=== PATIENT | male | born 1950 | race Caucasian/White ===

== ENCOUNTER 2023-04-13 14:36 | Outpatient (REF) | payer BC, SELFPAY ==
[2023-04-13 14:51] LABS: SARS-CoV-2 Ag POSITIVE (NEGATIVE)
== END 2023-04-13 14:37 | disposition home or self-care (01) ==
LOC: LAB 14:36
PROVIDERS: PCP Family Medicine; Visit Provider Family Medicine
DX: R05.1 Acute cough (principal)
CPT/HCPCS: 87811

== ENCOUNTER 2024-09-05 15:53 | Outpatient (OUT) | payer BC, SELFPAY ==
--- NOTE | 2024-09-05 | XR_ITS ---
The [address] [address] Patient Name: TENZIN VILLANUEVA MRN: [id number] date: 1950 Sex: M Assigned Patient Location: [facility] Current Patient Location: [facility] Accession/Order Number: [id number] Exam Date: 09/05/2024 17:41 Report Date: 09/05/2024 17:42 At the request of: LYN MARTINEZ MD Procedure: XR chest 2V Plain film chest 2 view HISTORY: Acute cough for 3 weeks COMPARISON: None FINDINGS: SUPPORT DEVICES: None POSTSURGICAL CHANGES: None HEART: Within normal limits PULMONARY KENDALL: Within normal limits MEDIASTINUM: Unremarkable LUNGS AND PLEURA: No acute lung process, pleural effusion or pneumothorax identified. BONY STRUCTURES: Thoracic hyperostosis/spondylosis ADDITIONAL FINDINGS None XR/XR chest 2V IMPRESSION: No acute process. Impression dictated by: Rik Barrientos M.D.09/05/2024 5:42 PM Dictation Location: InboundWriter Electronically authenticated by: [id number] Y Date: 09/05/2024 17:42
--- OUTSIDE RECORDS SUMMARY | 2024-09-05 16:18 | XMS_ITS | CCD ---
Author Organization [facility] Care Team Providers Care Yarn Spooler Name Role Phone ItaliaNata Unavailable Lyn Rodriguez Primary Care Physician MICHAEL ., DR NICHOLSON Admitting Unavailable HOY ., DR NICHOLSON Attending Unavailable HOY ., DR NICHOLSON Primary Care Unavailable HOY ., DR NICHOLSON Consulting Unavailable NILL, JANET Admitting Unavailable NILL, JANET Attending Unavailable HOY ., DR NICHOLSON Primary Care Unavailable NILL, JANET Consulting Unavailable NILL, JANET Admitting Unavailable NILL, JANET Attending Unavailable HOY ., DR NICHOLSON Primary Care Unavailable NILL, JANET Consulting Unavailable SHARP, PARISH Consulting Unavailable CHRISSY II, FARTUN Consulting Unavailable HOY ., DR NICHOLSON Admitting Unavailable HOY ., DR NICHOLSON Attending Unavailable HOY ., DR NICHOLSON Primary Care Unavailable HOY ., DR NICHOLSON Consulting Unavailable ZIEBER, DR EVIE Berger Consulting Unavailable HOY ., DR NICHOLSON Admitting Unavailable HOY ., DR NICHOLSON Attending Unavailable HOY ., DR NICHOLSON Primary Care Unavailable HOY ., DR NICHOLSON Consulting Unavailable NILL, Janet R Attending Unavailable NILL, Janet Berger Attending Unavailable NILL, Janet Berger Attending Unavailable HoyLyn Referring Unavailable NILL, Janet R Attending Unavailable NILL, Janet R Attending Unavailable NILL, Janet R Attending Unavailable Kenney, Puja Unavailable Allergies Allergy Classification Reported Allergen(s) Allergy Type Date of Onset Reaction(s) Facility (1 source) No Known Medication Allergies; Translations: [No Known Medication Allergies] Propensity to adverse reactions (disorder) [facility] Repository Medications Current Medications Medication Drug Class(es) Dates Sig (Normalized) Sig (Original) amoxicillin 875 mg / clavulanate 125 mg oral tablet (1 source) Penicillin-class Antibacterial Start: 12-06-2022 take 1 tablet by mouth every twelve hours Amoxicillin-Pot Clavulanate 875-125 MG 1 tablet Orally every 12 hrs for 10 day(s) Dec, Active dextromethorphan hydrobromide 30 mg / pyrilamine maleate 30 mg oral tablet (1 source) Uncompetitive N-fqblsm-Z-aspartate Receptor Antagonist, Sigma-1 Agonist Start: 12-06-2022 [place] DMT 30-30 MG 1 tablet Orally every 6-8 hours for 7 days Dec, Active fluticasone propionate 0.05 mg/actuat metered dose nasal spray (1 source) Corticosteroid Start: 12-06-2022 take 1 spray(s) nasal route once daily Fluticasone Propionate 50 MCG/ACT 1 spray in each nostril Nasally Once a day for 14 day(s) Dec, Active lisinopril 10 mg oral tablet (5 sources) Angiotensin Converting Enzyme Inhibitor Start: 09-25-2022 take 1 tablet by mouth once daily traZODone hydrochloride 100 mg oral tablet (5 sources) Serotonin Reuptake Inhibitor Start: 07-01-2018 take 100 mg by mouth once daily at bedtime trazodone 100 mg, Oral, Once a day (at bedtime), Refills(s) 0, Sleep Start Date: 07/01/18 Status: Ordered Problems Active Problems Problem Classification Problem Date Documented Da te Episodic/Chronic Abdominal hernia (15 sources) Obstructed inguinal hernia; Translations: [Unilateral inguinal hernia, with obstruction, without gangrene, not specified as recurrent] Onset: 09-11-2022 Episodic Biliary tract disease (1 source) Calculus of gallbladder without cholecystitis without obstruction; Translations: [CALCU GB W/O CHOLECYST W/O OBST] Onset: 09-20-2022 Episodic Diabetes mellitus without complication (4 sources) Diabetes mellitus; Translations: [Type 2 diabetes mellitus without complications] Onset: 10-06-2022 09-29-2022 Chronic Essential hypertension (4 sources) Hypertensive disorder; Translations: [Essential (primary) hypertension] Onset: 10-19-2022 09-25-2022 Chronic Hyperplasia of prostate (1 source) Benign prostatic hyperplasia without lower urinary tract symptoms; Translations: [BENIGN PROSTATIC HYPRPLASIA WO LUTS] Onset: 10-06-2022 Chronic Other and unspecified benign neoplasm (1 source) Benign lipomatous neoplasm of spermatic cord; Translations: [CAROLYN LIPOMATOUS NEOP SPERMATIC CORD] Onset: 10-19-2022 Episodic Other gastrointestinal disorders (3 sources) History of diverticulitis 09-25-2022 Episodic Other nutritional; endocrine; and metabolic disorders (3 sources) Overweight in adulthood with body mass index of 25 or more but less than 30 09-29-2022 Episodic Other upper respiratory disease (1 source) Nasal congestion Episodic Other upper respiratory infections (2 sources) Acute upper respiratory infection, unspecified; Translations: [Acute pansinusitis, unspecified] Onset: 04-23-2021 Resolved: 04-23-2021 Episodic Residual codes; unclassified (3 sources) Insomnia 09-25-2022 Episodic Spondylosis; intervertebral disc disorders; other back problems (1 source) Other intervertebral disc degeneration, lumbar region; Translations: [OTH IV DISC DEGEN LUMBAR REGION] Onset: 09-20-2022 Chronic Unclassified (3 sources) Irreducible left inguinal hernia 09-29-2022 Unclassified (2 sources) CONTACT W/AND (SUSP) EXPOS COVID-19; Translations: [CONTACT W/AND (SUSP) EXPOS COVID-19] Onset: 12-25-2021 Viral infection (1 source) COVID-19; Translations: [COVID-19] Onset: 12-25-2021 Past or Other Problems Problem Classification Problem Date Documented Da te Episodic/Chronic Acute bronchitis (1 source) Acute bronchitis, unspecified; Translations: [ACUTE BRONCHITIS UNSPECIFIED] Onset: 12-25-2021 Episodic Immunizations and screening for infectious disease (1 source) Contact with and (suspected) exposure to other viral communicable diseases Onset: 04-23-2021 Resolved: 04-23-2021 Episodic Unclassified (1 source) CONTACT W/AND (SUSP) EXPOS COVID-19; Translations: [CONTACT W/AND (SUSP) EXPOS COVID-19] Onset: 12-24-2021 Results Test Name Value Interpretation Reference Range Facility COVID Quick Testingon 2022 Result Negative CURRENT Other Ambulatory Visit Summaryon 0 11-18-2022 Ambulatory Visit Summary KAY TENZIN W :1950 Visit Date:11/18/2022 Ambulatory Visit Instructions Your Care Team Attending Physician - MARYA HAMM, Janet Berger Primary Care Physician - Lyn Rodriguez MD This Is Your Medications List lisinopril (lisinopril 10 mg Tab) trazodone Procedures Performed Repair of left inguinal hernia (10/14/2022), Colonoscopy, Repair of right inguinal hernia, Simple dental extraction. Medications What How Much When Instructions Unchanged lisinopril (lisinopril 10 mg Tab) 1 Tablets By Mouth Every day Unknown Unchanged trazodone 100 Milligram By Mouth Once a day (at bedtime) Allergies No Known Allergies No Known Medication Allergies Problems Ongoing - Any problem that you are currently receiving treatment for. BMI 28.0-28.9,adult History of diverticulitis HTN (hypertension) Insomnia Irreducible left inguinal hernia Left inguinal hernia Historical - Any problem that you are no longer receiving treatment for. Diabetes Normal [facility] General Surgery Office/Clini c Noteon 11-18-2022 General Surgery Office/Clinic Note Chief Complaint post operative follow up HPI Staff 5 week post operative follow up post left inguinal hernia repair. Denies pain, no use of pain medication. Denies bleeding or drainage. Bowels moving well. Scheduled to RTW 11/30. History of Present Illness 5 weeks s/p LIHR with mesh; doing well, denies pain, no N/V; has increased activity at home without problems. Review of Systems ROS - Provider Constitutional: no fever, no sweats, no weight loss. Eyes: no glasses, no blurred vision, no visual loss. ENMT: no dentures, no hoarseness, no swallowing difficulties, no hearing loss, no ear infection(s), no nose bleeds. Cardiovascular: normal blood pressure, no chest pain, regular heartbeat, no heart murmur. Respiratory: no shortness of breath, no cough, no asthma, no wheezing. Gastrointestinal: no nausea, no vomiting, no diarrhea, no constipation, no blood in stool, no change in bowel habits, no abdominal pain, no hepatitis. Genitourinary: no kidney stones, no urine infection, no dysuria. Musculoskeletal: no pain, no weakness. Skin: no changing moles, no rash, no skin lumps. Neurologic: no seizures, no epilepsy, no headache. Psychiatric: no emotional or psychiatric problem. Heme/Lymph: no bleeding problems, no anemia, no blood clots, no transfusions. Allergy/Immunologic: no swollen lymph nodes/glands, no IV drug abuse. Other: Additional ROS info: Except as noted in the above Review of Systems and in the History of Present Illness, all other systems have been reviewed and are negative or noncontributory. Physical Exam abd: soft, normal bs, nontender, nondistended, incision healing well, no erythema or drainage, no induration or seroma. Assessment/Plan 1. Irreducible left inguinal hernia (K40.30: Unilateral inguinal hernia, with obstruction, without gangrene, not specified as recurrent) doing well, ok to return to work 11/30/22; call with problems/questions. Ordered: Postoperative follow-up visit, related to the original procedure [id number] Follow-up With When Contact Information MARYA HAMM, Janet Berger, TERESA Only if needed [address] [place] [address]- Additional Instructions: Problem List/Past Medical History Ongoing BMI 28.0-28.9,adult History of diverticulitis HTN (hypertension) Insomnia Irreducible left inguinal hernia Left inguinal hernia Historical Diabetes Procedure/Surgical History Repair of left inguinal hernia (10/14/2022), Colonoscopy, Repair of right inguinal hernia, Simple dental extraction. Medications lisinopril 10 mg Tab, 10 mg= 1 tab(s), Oral, Daily trazodone, 100 mg, Oral, Once a day (at bedtime) Allergies No Known Allergies No Known Medication Allergies Social History Alcohol - Denies Alcohol Use, 09/29/2022 Substance Abuse - Denies Substance Abuse, 09/29/2022 Tobacco Never (less than 100 in lifetime) Tobacco Use:. Never Smokeless Tobacco Use:., 09/29/2022 Family History Diabetes mellitus type 2: Mother and Sister. Heart disease: Mother and Father. Immunizations Vaccine Date Status Comments influenza virus vaccine, inactivated - Not Given Patient Refuses SARS-CoV-2 mRNA (kathrynn 5y-11y) vac - Not Given Patient Refuses Normal [facility] Comment on above: Result Comment: Elec tronically Signed By: MARYA HAMM, Janet Berger\.br\Date and Time Signed: 11/18/22 17:20 EDT Formson 11-06-2022 Forms [id number] #1.00CD:127 [facility] Provider Letteron 11-06-2022 Provider Letter November 06, 2022 TENZIN VILLANUEVA [address] [place] [address] : 1950 To Whom It May Concern, The above named person may return to work without restrictions 11/30/22. Sincerely, Dr. Janet Malhotra MD General Surgery [facility] Ambulatory Visit Summaryon 0 11-04-2022 Ambulatory Visit Summary TENZIN VILLANUEVA :1950 Visit Date:11/04/2022 Ambulatory Visit Instructions Your Diagnosis Left inguinal hernia Your Care Team Attending Physician - Janet MALHOTRA MD Primary Care Physician - Lyn Rodriguez MD This Is Your Medications List Contact prescribing physician if questions or concerns lisinopril (lisinopril 10 mg Tab) trazodone Procedures Performed Repair of left inguinal hernia (10/14/2022), Colonoscopy, Repair of right inguinal hernia, Simple dental extraction. What to do next Scheduled Follow-Up Appointments Wednesday. 2022 4:00 PM EDT With: Janet MALHOTRA MD Where: General Surgery Marya/Clara Vikki [facility] General Surgery Office/Clini c Noteon 11-04-2022 General Surgery Office/Clinic Note Chief Complaint post operative follow up HPI Staff 21 day post operative follow up post left inguinal hernia repair. Reports moderate discomfort, especially with activity. No use of pain medication. Denies bleeding or drainage. Bowels moving well. History of Present Illness 3 weeks s/p LIHR; some soreness, no drainage; taking occasional ibuprofen; no strenuous activities; concerned about returning to work on 11/16/22 because he has a very physical job. Review of Systems ROS - Provider Constitutional: no fever, no sweats, no weight loss. Eyes: no glasses, no blurred vision, no visual loss. ENMT: no dentures, no hoarseness, no swallowing difficulties, no hearing loss, no ear infection(s), no nose bleeds. Cardiovascular: normal blood pressure, no chest pain, regular heartbeat, no heart murmur. Respiratory: no shortness of breath, no cough, no asthma, no wheezing. Gastrointestinal: no nausea, no vomiting, no diarrhea, no constipation, no blood in stool, no change in bowel habits, no abdominal pain, no hepatitis. Genitourinary: no kidney stones, no urine infection, no dysuria. Musculoskeletal: no pain, no weakness. Skin: no changing moles, no rash, no skin lumps. Neurologic: no seizures, no epilepsy, no headache. Psychiatric: no emotional or psychiatric problem. Heme/Lymph: no bleeding problems, no anemia, no blood clots, no transfusions. Allergy/Immunologic: no swollen lymph nodes/glands, no IV drug abuse. Other: Additional ROS info: Except as noted in the above Review of Systems and in the History of Present Illness, all other systems have been reviewed and are negative or noncontributory. Physical Exam abd: soft, nontender, nondistended, incision healing well, no erythema or drainage; minimal induration in left cord Assessment/Plan 1. Left inguinal hernia (K40.90: Unilateral inguinal hernia, without obstruction or gangrene, not specified as recurrent) doing well; in 1 week, gradually increase activity/lifting; will extend off work until 11/30/22; follow up with me in 2 weeks; call sooner if problems/questions. Follow-up No qualifying data available Problem List/Past Medical History Ongoing BMI 28.0-28.9,adult History of diverticulitis HTN (hypertension) Insomnia Irreducible left inguinal hernia Left inguinal hernia Historical Diabetes Procedure/Surgical History Repair of left inguinal hernia (10/14/2022), Colonoscopy, Repair of right inguinal hernia, Simple dental extraction. Medications lisinopril 10 mg Tab, 10 mg= 1 tab(s), Oral, Daily trazodone, 100 mg, Oral, Once a day (at bedtime) Allergies No Known Allergies No Known Medication Allergies Social History Alcohol - Denies Alcohol Use, 09/29/2022 Substance Abuse - Denies Substance Abuse, 09/29/2022 Tobacco Never (less than 100 in lifetime) Tobacco Use:. Never Smokeless Tobacco Use:., 09/29/2022 Family History Diabetes mellitus type 2: Mother and Sister. Heart disease: Mother and Father. Immunizations Vaccine Date Status Comments influenza virus vaccine, inactivated - Not Given Patient Refuses SARS-CoV-2 mRNA (tozinamjohnn 5y-11y) vac - Not Given Patient Refuses Normal [facility] Comment on above: Result Comment: Elec tronically Signed By: Janet MALHOTRA MD\.br\Date and Time Signed: 11/04/22 13:58 EDT Ambulatory Visit Summaryon 0 10-23-2022 Ambulatory Visit Summary TENZIN VILLANUEVA :1950 Visit Date:10/23/2022 Ambulatory Visit Instructions Your Diagnosis Irreducible left inguinal hernia Your Care Team Attending Physician - Janet MALHOTRA MD Primary Care Physician - Lyn Rodriguez MD This Is Your Medications List lisinopril (lisinopril 10 mg Tab) trazodone Procedures Performed Repair of left inguinal hernia (10/14/2022), Colonoscopy, Repair of right inguinal hernia, Simple dental extraction. What to do next Scheduled Follow-Up Appointments Wednesday. 2022 1:40 PM EDT With: Janet MALHOTRA MD Where: General Surgery Nill/Said [place] Normal [facility] General Surgery Office/Clini c Noteon 10-23-2022 General Surgery Office/Clinic Note Chief Complaint post operative follow up HPI Staff 9 day post operative follow up post left inguinal hernia repair. Reports moderate discomfort. No use of prescription pain medication. Taking Ibuprofen 800mg TID. Denies bleeding or drainage. Bowels moving well. History of Present Illness 9 days s/p LIHR with mesh for large indirect inguinal hernia and cord lipoma; doing well, mild soreness, no drainage; taking ibuprofen for pain, did not take narcotics; normal bms, voiding well. Review of Systems ROS - Provider Constitutional: no fever, no sweats, no weight loss. Eyes: no glasses, no blurred vision, no visual loss. ENMT: no dentures, no hoarseness, no swallowing difficulties, no hearing loss, no ear infection(s), no nose bleeds. Cardiovascular: normal blood pressure, no chest pain, regular heartbeat, no heart murmur. Respiratory: no shortness of breath, no cough, no asthma, no wheezing. Gastrointestinal: no nausea, no vomiting, no diarrhea, no constipation, no blood in stool, no change in bowel habits, no abdominal pain, no hepatitis. Genitourinary: no kidney stones, no urine infection, no dysuria. Musculoskeletal: no pain, no weakness. Skin: no changing moles, no rash, no skin lumps. Neurologic: no seizures, no epilepsy, no headache. Psychiatric: no emotional or psychiatric problem. Heme/Lymph: no bleeding problems, no anemia, no blood clots, no transfusions. Allergy/Immunologic: no swollen lymph nodes/glands, no IV drug abuse. Other: Additional ROS info: Except as noted in the above Review of Systems and in the History of Present Illness, all other systems have been reviewed and are negative or noncontributory. Physical Exam abd: incision healing well, minimal induration, no erythema or drainage, no ecchymoses; induration of left cord and hemiscrotum; no cellulitis. Assessment/Plan 1. Irreducible left inguinal hernia (K40.30: Unilateral inguinal hernia, with obstruction, without gangrene, not specified as recurrent) doing well, continue no lifitng > 10 lbs for 3 more weeks; follow up in 2 weeks, call sooner if problems/questions. Follow-up No qualifying data available Problem List/Past Medical History Ongoing BMI 28.0-28.9,adult History of diverticulitis HTN (hypertension) Insomnia Irreducible left inguinal hernia Left inguinal hernia Historical Diabetes Procedure/Surgical History Repair of left inguinal hernia (10/14/2022), Colonoscopy, Repair of right inguinal hernia, Simple dental extraction. Medications lisinopril 10 mg Tab, 10 mg= 1 tab(s), Oral, Daily trazodone, 100 mg, Oral, Once a day (at bedtime) Allergies No Known Allergies No Known Medication Allergies Social History Alcohol - Denies Alcohol Use, 09/29/2022 Substance Abuse - Denies Substance Abuse, 09/29/2022 Tobacco Never (less than 100 in lifetime) Tobacco Use:. Never Smokeless Tobacco Use:., 09/29/2022 Family History Diabetes mellitus type 2: Mother and Sister. Heart disease: Mother and Father. Immunizations Vaccine Date Status Comments influenza virus vaccine, inactivated - Not Given Patient Refuses SARS-CoV-2 mRNA (candelaria 5y-11y) vac - Not Given Patient Refuses Normal [facility] Comment on above: Result Comment: Elec tronically Signed By: MARYA HAMM, Janet Berger\.br\Date and Time Signed: 10/23/22 14:18 EDT Formson 10-20-2022 Forms [id number] #1.00CD:127 Normal [facility] Operative Reporton Operative Report [id number] #1.00CD:127 Normal [facility] Provider Letteron 10-13-2022 Provider Letter October 13, 2022 TENZIN VILLANUEVA [address] [place] [address] TENZIN VILLANUEVA 1950 To Whom It May Concern, Please excuse above patient from work. Date of Illness: From: 10/14/2022 To: 11/11/2022 (approximately) May Return to Work On: TBD Restrictions: _ Comments: Patient is having surgery. Return to work will be determined at follow up. Sincerely, Janet Malhotra MD FT General Surgery Normal [facility] Lab Reportson 10-05-2022 Lab Reports [id number] #1.00CD:127 Normal [facility] PSA, FREE AND TOTAL RATIOon 10-03-2022 % Free PSA 52.8 % Normal [facility] Comment on above: Result Comment: The table below lists the probability of prostate cancer for men with non-suspicious JOHN results and total PSA between 4 and 10 ng/mL, by patient age (Robby et al, MEGAN 1998, 279:1542). % Free PSA 50-64 yr 65-75 yr 0.00-10.00% 56% 55% 10.01-15.00% 24% 35% 15.01-20.00% 17% 23% 20.01-25.00% 10% 20% >25.00% 5% 9% Please note: Robby et al did not make specific recommendations regarding the use of percent free PSA for any other population of men. Performed By: #### P SAFREE #### [facility] Laboratory [address] [place] [address] Dr. Fortino Schroeder Prostate specific Ag [Mass/Vol] 2.5 ng/mL Normal 0.0-4.[address] [facility] Comment on above: Result Comment: Peyman castellanos ECLIA methodology. . According to the [employer], Serum PSA should decrease and remain at undetectable levels after radical prostatectomy. The AUA defines biochemical recurrence as an initial PSA value 0.2 ng/mL or greater followed by a subsequent confirmatory PSA value 0.2 ng/mL or greater. Values obtained with different assay methods or kits cannot be used interchangeably. Results cannot be interpreted as absolute evidence of the presence or absence of malignant disease. Performed By: #### P SAFREE #### [facility] [address] [place] [address] Dr. Fortino Schroeder PSA, Free 1.32 ng/mL Normal N/A [facility] Comment on above: Result Comment: Peyman castellanos ECLIA methodology. Performed By: #### P SAFREE #### [facility] [address] [place] [address] Dr. Fortino Schroeder ECG 12-Leadon 10-02-2022 ECG 12-Lead [id number] #1.00CD:127 Normal [facility] PROF CHEM 8 (BAS METB)on Anion gap [Moles/Vol] 13.0 mmol/L Normal [facility] Comment on above: Performed By: #### B MP #### [facility] [address] [place] [address] Dr. Fortino Schroeder Calcium [Mass/Vol] 8.8 mg/dL Normal 8.5-10.1 [facility] Comment on above: Performed By: #### B MP #### [facility] [address] [address] [address] Fortino Schroeder Chloride [Moles/Vol] 105 mmol/L Normal 98-[address] [facility] Comment on above: Performed By: #### B MP #### [facility] [address] [place] [address] Dr. Fortino Schroeder CO2 [Moles/Vol] 27.3 mmol/L Normal 21.0-32.0 [facility] Comment on above: Performed By: #### B MP #### [facility] [address] [address] [address] Fortino Schroeder Creatinine [Mass/Vol] 1.63 mg/dL Critically high 0.70-1.[address] [facility] Comment on above: Performed By: #### B MP #### [facility] [address] [address] [address] Fortino Schroeder EGFR-AF CHILEAN 51 mL/min/1.73m2 Critically low >=60 [facility] Comment on above: Performed By: #### B MP #### [facility] [address] [address] [address] Fortino Schroeder EGFR-NON AF CHILEAN 42 mL/min/1.73m2 Critically low >=[address] [facility] Comment on above: Performed By: #### B MP #### [facility] [address] [address] [address] Fortino Schroeder Glucose [Mass/Vol] 104 mg/dL Normal 74-[address] [facility] Comment on above: Performed By: #### B MP #### [facility] [address] [address] [address] Fortino Schroeder Potassium [Moles/Vol] 5.3 mmol/L Critically high 3.5-5.[address] [facility] Comment on above: Performed By: #### B MP #### [facility] [address] [address] [address] Fortino Schroeder Sodium [Moles/Vol] 140 mmol/L Normal 136-145 [facility] Comment on above: Performed By: #### B MP #### [facility] [address] [address] [address] Fortino Schroeder Urea nitrogen [Mass/Vol] 25.0 mg/dL Critically high 7.0-18.[address] [facility] Comment on above: Performed By: #### B MP #### [facility] [address] [address] [address] Fortino Schroeder Urea nitrogen/Creatini ne [Mass ratio] 15.3 mg/mg Normal [facility] Comment on above: Performed By: #### B MP #### [facility] [address] [place], [place] [address] Dr. Fortino Schroeder Facesheeton 10-01-2022 Facesheet [id number] #1.00CD:127 [facility] Consent for Procedure/Surger yon 09-30-2022 Consent for Procedure/Surgery [id number]# 1.00CD:127 [facility] Pre-Certification Formon Pre-Certification Form [id number]#1.00CD:127 [facility] Provider Letter FTMCon 09-30 Provider Letter FT September 30, 2022 KAY, TENZIN Haynes [address] [place] [address] [address] [place] [address] TENZIN VILLANUEVA 1950 To Whom It May Concern, Please excuse above patient from work 10/02/2022. Sincerely, Dr. Janet Malhotra MD General Surgery [facility] Ambulatory Visit Summaryon 0 09-29-2022 Ambulatory Visit Summary TENZIN VILLANUEVA :1950 Visit Date:09/29/2022 Ambulatory Visit Instructions Your Diagnosis Irreducible left inguinal hernia Your Care Team Attending Physician - MARYA HAMM, Janet Berger Primary Care Physician - Lyn Rodriguez MD This Is Your Medications List Contact prescribing physician if questions or concerns lisinopril (lisinopril 10 mg Tab) trazodone Procedures Performed Colonoscopy, Repair of right inguinal hernia, Simple dental extraction. Discharge Vitals Heart Rate (Peripheral) 72 Respiratory Rate 16 Blood Pressure 122/82 Height 172.72 cm Height 68 in Weight 86.2 kg Weight 189.64 lb BMI 28.89 Medications What How Much When Instructions Unchanged lisinopril (lisinopril 10 mg Tab) 1 Tablets By Mouth Every day Unknown Contact prescribing physician if questions or concerns Unchanged trazodone 100 Milligram By Mouth Once a day (at bedtime) Contact prescribing physician if questions or concerns Medications and Immunizations Administered Not Given influenza virus vaccine, inactivated, Patient Refuses SARS-CoV-2 mRNA (tozinameran 5y-11y) vac, Patient Refuses Allergies No Known Allergies No Known Medication Allergies Problems Ongoing - Any problem that you are currently receiving treatment for. BMI 28.0-28.9,adult History of diverticulitis HTN (hypertension) Insomnia Irreducible left inguinal hernia Left inguinal hernia Historical - Any problem that you are no longer receiving treatment for. Diabetes Normal [facility] Physician Referralon 023 Physician Referral [id number] #1.00CD:127 Normal [facility] CREATININEon 09-11-2022 Creatinine [Mass/Vol] 1.60 mg/dL Critically high 0.70-1.[address] [facility] Comment on above: Performed By: #### C SHAQUILLE #### [facility] [address] [address] [address] Fortino Schroeder EGFR-AF CHILEAN 52 mL/min/1.73m2 Critically low >=[address] [facility] Comment on above: Performed By: #### C SHAQUILLE #### [facility] [address] [address] [address] Fortino Schroeder EGFR-NON AF CHILEAN 43 mL/min/1.73m2 Critically low >=[address] [facility] Comment on above: Performed By: #### C SHAQUILLE #### [facility] [address] ABD/PELV W CONon 09-12-[address] ABD/PELV W CON EXAMINATION: CT ABD/PELV W CON HISTORY: Inguinal hernia on left COMPARISON: No relevant comparison available. TECHNIQUE: Axial, Coronal, and Sagittal images were obtained without and/or with IV contrast as indicated by examination type. Dose reduction techniques were achieved by using automated exposure control and/or adjustment of mA and/or kV according to patient size and/or use of iterative reconstruction technique. FINDINGS: LUNG BASES: No visible pulmonary or pleural disease. LIVER: No enlargement, atrophy, suspicious density, or significant focal lesion. BILIARY: 1 cm stone within noninflamed gallbladder. PANCREAS: No lesion, fluid collection, or abnormal duct dilatation. SPLEEN: No enlargement or focal lesion. ADRENALS: No mass or enlargement. KIDNEYS: 3.3 cm benign-appearing cyst within right kidney. Smaller, likely benign cysts within left kidney. No mass, obstruction, or calcification. BOWEL/MESENTERY: No visible mass, obstruction, or bowel wall thickening. AORTA/VASCULAR: No aneurysm or dissection. RETROPERITONEUM: No mass or adenopathy. LYMPH NODES: No adenopathy. URINARY BLADDER: No visible focal wall thickening, lesion, or calculus. PELVIC ORGANS: Enlarged slightly heterogeneous prostate, 6.6 x 5.8 x 5.7 cm. ABDOMINAL WALL: Large left inguinal hernia is 6.3 x 7.1 cm in diameter extending into the left hemiscrotum, containing sigmoid colon and large amount of fat. BONES: 10 mm anterolisthesis of L4 on L5 secondary to bilateral pars interarticularis defects. Marked disc space narrowing L4-L5, L5-S1. Marked disc space narrowing is also seen at L1-L2. OTHER: Negative. IMPRESSION: 1. Cholelithiasis. 2.Large left inguinal hernia containing sigmoid colon and fat which extends into the left scrotum; no strangulation or obstruction. 3. Enlarged prostate. 4.Grade 2 anterior listhesis of L4 on 5 and multilevel marked degenerative disc disease. Electronically authenticated by: EVIE TROTTER Date: 2022-09-11 13:41 Normal [facility]on 12-06 SARS-CoV-2 (COVID-19) RNA THANH+probe Ql (Unsp spec) Detected Critically abnormal NOT DETECTED [facility] Comment on above: Result Comment: This test is not yet approved or cleared by the [place] FDA. When there are no FDA-approved or cleared tests available, and other criteria are met, FDA can make tests available under an emergency access mechanism called an Emergency Use Authorization (EUA). The EUA for this test is supported by the [place] of [employer] and Human Service's (HHS's) declaration that circumstances exist to justify the emergency use of in vitro diagnostics for the detection and/or diagnosis of the virus that causes COVID-19. This EUA will remain in effect (meaning this test can be used) for the duration of the COVID-19 declaration justifying emergency of IVDs, unless it is terminated or revoked by FDA (after which the test may no longer be used). Performed By: #### C VDTB #### [facility] [address] [place] [address] Dr. Fortino LISA Quick Testingon 2020 Result Negative CURRENT Other Vital Signs Date Time Vital Sign Value Performing Clinician Facility 12-06-2022 09:45-0400 Body height 170.18 cm Puja Kenney Other CURRENT Other 12-06-2022 09:45-0400 Body mass index (BMI) [Ratio] 29.66 kg/m2 Puja Kenney Other CURRENT Other 12-06-2022 09:45-0400 Body temperature 98.8 [degF] Puja Kenney Other CURRENT Other 12-06-2022 09:45-0400 Body weight 85.91 kg Puja Kenney Other CURRENT Other 12-06-2022 09:45-0400 Respiratory rate 18 /min Puja Kenney Other CURRENT Other 12-06-2022 09:45-0400 SaO2% (BldA) [Mass fraction] 98 % Puja Kenney Other CURRENT Other 09-29-2022 15:10-0400 Blood Pressure Location Janet MALOHTRA [facility] 09-29-2022 15:10-0400 Diastolic blood pressure 82 mm[Hg] Janet MALHOTRA [facility] 09-29-2022 15:10-0400 Heart rate 72 /min Janet MALHOTRA [facility] 09-29-2022 15:10-0400 Respiratory rate 16 /min Janet MARYA [facility] [place] 09-29-2022 15:10-0400 Systolic blood pressure 122 mm[Hg] Janet MALHOTRA [facility] [place] 04-23-2021 10:00-0500 Body height 170.18 cm Nata Italia Other CURRENT Other 04-23-2021 10:00-0500 Body mass index (BMI) [Ratio] 28.19 kg/m2 Nata Italia Other CURRENT Other 04-23-2021 10:00-0500 Body temperature 97.8 [degF] Nata Italia Other CURRENT Other 04-23-2021 10:00-0500 Body weight 81.65 kg Nata Rossmond Other CURRENT Other 04-23-2021 10:00-0500 Respiratory rate 18 /min Nata Italia Other CURRENT Other 04-23-2021 10:00-0500 SaO2% (BldA) [Mass fraction] 98 % Nata Italia Other CURRENT Other Encounters Encounter Date Encounter Type Care Provider Facility Start: 12-06-2022 End: 12-06-2022 ambulatory Puja Kenney Other CURRENT Other Start: 12-06-2022 Office outpatient vi sit 15 minutes Puja Kenney [facility] Start: 11-18-2022 End: 11-19-2022 ambulatory Janet MALHOTRA Facility:[facility] Start: 11-18-2022 End: 11-18-2022 Patient encounter procedure Janet R NILL [facility] Start: 11-04-2022 End: 11-05-2022 ambulatory Janet R NILL Facility:[facility] Start: 11-04-2022 End: 11-04-2022 Patient encounter procedure Janet R NILL General Surgery [facility] [place] Start: 10-23-2022 End: 10-24-2022 ambulatory Janet R NILL Facility:[facility] Start: 10-14-2022 End: 10-15-2022 ambulatory JANET NILL Facility: Start: 10-06-2022 Encounter for preprocedural cardiovascular examination DR LYN RODRIGUEZ . [facility] Start: 10-06-2022 Encounter for preprocedural laboratory examination DR LYN RODRIGUEZ . [facility] Start: 10-06-2022 Encounter for other preprocedural examination JANET MALHOTRA [facility] Start: 10-02-2022 End: 10-03-2022 Encounter for preprocedural cardiovascular examination DR LYN RODRIGUEZ . Facility: Start: 10-02-2022 End: 10-03-[address] LYN RODRIGUEZ . Facility: Start: 10-02-2022 End: 10-03-2022 Encounter for other preprocedural examination JANET LEZAMAL Facility: Start: 09-29-2022 End: 09-30-2022 ambulatory Janet R NILL Facility:[facility] Start: 09-29-2022 End: 09-29-2022 Patient encounter procedure Janet R NILL General Surgery [facility] Start: 09-16-2022 ambulatory Lyn Rodriguez Facility: [facility] [place] Start: 09-11-2022 End: 09-12-[address] LYN RODRIGUEZ . Facility:[facility] Start: 12-24-2021 End: 12-24-[address] LYN RODRIGUEZ . Facility:[facility] Start: 04-23-2021 (URG) Urgent Care Visit Nata schwarz [facility] Start: 04-23-2021 End: 04-23-2021 ambulatory Nata Italia Other CURRENT Other Procedures Date Procedure Procedure Detail Performing Clinician Start: 10-14-2022 Repair of left ingui nal hernia Janet NILL Colonoscopy Janet LEZAMAL Repair of right ingu inal hernia Janet NILL Simple extraction of tooth M elinor MALHOTRA Immunizations Immunization Date Immunization Notes Care Provider Mitch boyd NEGATED: Highlighted row has not occurred!09-29-2022 influenza virus vaccine, unspecified formulation Janet MALHOTRA [facility] [place] NEGATED: Highlighted row has not occurred!09-29-2022 SARS-CoV-2 mRNA (tozinameran 5y-11y) vaccine Janet MALHOTRA General [facility] [place] Payers Date Payer Category Payer [facility] [id number] 1950 Unknown [id number] 2.16.84 [id number] 1950 Unknown [id number] 2.16.84 [id number] 1950 Unknown [id number] 2.16.84 [id number] 1950 Unknown [id number] 2.16.84 [id number] 1950 Unknown [id number] 2.16.84 [id number] 1950 Unknown [id number] 2.16.8 [id number] 1950 Unknown [id number] 2.16.8 [id number] 1950 Unknown [id number] 2.16.8 [id number] 1950 Unknown [id number] 2.16.8 [id number] 1950 Unknown [id number] 2.16.8 [id number] 1950 Unknown [id number] 2.16.8 [id number] Social History Date Type Detail Facility Unknown if ever smoked CURRENT Other Start: 09-29-2022 Tobacco smoking status Never s moked tobacco (finding) [facility] [place] Tobacco smoking status Never Gener al [facility] Sex Assigned At Male [facility] Functional Status Date Assessment Result Facility 09-29-2022 Functional Status N/A [facility] [place] Clinical Notes 09-29-2022 to 12-06-2022 Note Date & Type Note Facility 12-06-2022 Evaluation note Encounter Date Diagnosis Assessment Notes Dec, Sinus congestion (ICD-10 - R09.81) Dec, Acute pansinusitis, recurrence not specified (ICD-10 - J01.40) testing is negative today in clinic. rx sent, take as directed. recommended hot steam baths and/or cool mist humidifier. sinus rinses. push rest/fluids. reinforced universal infection control protocols and good hand hygiene for infection control. pt education and anticipatory guidance provided on viral vs bacterial infection progression. immediate eval if warning s/s of intractable fevers, respir distress or other emergent symptoms. otherwise f/u with PCP in 3-4 days if febrile or new/worsening s/s despite tx. CURRENT Other 05-31-2023 Hospital Discharge instructions Follow Up Care 11/04/2022 13:50:29 With:MARYA HAMM, TERESA Perez Address: [address] [place] [address]- When: only if needed [facility] 05-10-2023 NoteOPERATIVE NOTE OPERATION DATE: 10/14/2022 PREOPERATIVE DIAGNOSIS: Left inguinal hernia. 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 PROCEDURE: Left inguinal herniorrhaphy with mesh patch insertion. SURGEON: Janet Malhotra M.D. ANESTHESIA: General with laryngeal mask airway as well as left sided TAP block per Dr. Hoff ESTIMATED BLOOD LOSS: Less than 5 mL. INDICATIONS AND CONSENT: Patient is a 72-year-old male with history of enlarging, non-reducible, left inguinal hernia. Indications, risks, benefits, alternatives of proceeding with herniorrhaphy with mesh insertion were explained extensively to the patient, including the risks of bleeding, infection, scarring, pain, nerve injury, testicular injury, blood clot, pulmonary embolus, heart attack, anesthetic complications, need for further surgery or mesh removal. All of his questions were answered. Informed consent was obtained. PROCEDURE: Patient brought to the operating room, placed in the supine position. General anesthesia was induced. Left sided TAP block was performed by Dr. Hoff. Patient was then prepped and draped in the usual sterile fashion. Left groin incision was made in the area of the skin crease and carried down through subcutaneous tissue using electrocautery as well as sharp dissection. The external oblique was torn. It was opened along the direction of its fibers, down to the external inguinal ring. Cord structures were mobilized and retracted using Kaiden drain. There was extensive scarring. There was a large cord lipoma as well as a chronically scarring, wide based, indirect sac. These were freed up from the cord structures. Broad based hernia sac was reduced. The internal ring was enlarged and weakened. The scarred cord lipoma was excised. Base was ligated with 3-0 Vicryl suture. The wound was irrigated. There was good hemostasis. The internal ring was then plicated using interrupted 2-0 Prolene sutures. A Bard 5 x 10 cm mesh was trimmed and a keyhole was created for the cord structures. It was then placed in the floor of the inguinal canal. It was then secured circumferentially with interrupted 3-0 Vicryl sutures. The arms were placed around the cord structures and secured. Care was taken to avoid undue tension on the cord structures. It should be noted that several branches of the ilioinguinal nerve were divided due to the proximity to the mesh. They were ligated with 3-0 Vicryl ties. The wound was irrigated with antibiotic saline. There was good hemostasis. The external oblique was closed with a running 3-0 Vicryl suture. The remaining Exparel solution was injected into the subcutaneous tissue. Xuan's fascia was re-approximated with interrupted 3-0 Monocryl suture. The skin was then closed with a running 4-0 subcuticular Monocryl suture and skin glue. Sterile pressure dressing was applied. Sponge and needle counts were correct x2 per nursing personnel. Patient tolerated procedure well, was sent to recovery room in good condition. CC: Lyn Rodriguez M.D.[facility] [id number] NoteChief Complaint consultation for left inguinal hernia [facility] Staff 72 year old male presents on consultation from Dr. Rodriguez for left inguinal hernia. Reports left groinswelling x 4 months. Reports significant increase in size over the past several weeks. Reports significant scrotal swelling with some scrotal discomfort. No use of pain medication. Denies nausea or vomiting. Bowels moving well. Denies urinary complaints. CT abdomen/pelvis completed 09/11 with large left inguinal hernia with sigmoid colon and fat extending into scrotum. History of Present Illness 72 yo male with h/o htn, referred for left inguinal hernia; patient reports 4 month h/o enlarging left inguinal bulge, sore at times, nonreducible; no skin changes, no bowel changes; no N/V; recent ct scan with large left inguinal hernia extending into scrotum containing sigmoid colon, no obstruction; remote h/o RIHR with mesh, no other abd operations; colonoscopy in 2019; no asa or NSAID use; notobacco use. Review of Systems PHQ Score Initial Depression Screen Score: 0 ROS - Provider Constitutional: no fever, no sweats, no weight loss. Eyes: no glasses, no blurred vision, no visual loss. ENMT: no dentures, no hoarseness, no swallowing difficulties, no hearing loss, no ear infection(s),no nose bleeds. Cardiovascular: normal blood pressure, no chest pain, regular heartbeat, no heart murmur. Respiratory: no shortness of breath, no cough, no asthma, no wheezing. Gastrointestinal: no nausea, no vomiting, no diarrhea, no constipation, no blood in stool, no change in bowel habits, no abdominal pain, no hepatitis. Genitourinary: no kidney stones, no urine infection, no dysuria. Musculoskeletal: no pain, no weakness. Skin: no changing moles, no rash, no skin lumps. Neurologic: no seizures, no epilepsy, no headache. Psychiatric: no emotional or psychiatric problem. Heme/Lymph: no bleeding problems, no anemia, no blood clots, no transfusions. Allergy/Immunologic: no swollen lymph nodes/glands, no IV drug abuse. Other: Additional ROS info: Except as noted in the above Review of Systems and in the History of Present Illness, all other systems have been reviewed and are negative or noncontributory. Physical Exam Vitals & Measurements HR: 72(Peripheral) RR: 16 BP: 122/82 HT: 68 in HT: 172.72 cm WT: 86.2 kg WT: 189.64 lb BMI: 28.89 HEENT: normal conjunctiva, sclera clear, no scleral icterus, EOM intact, PERRLA, oral mucosa moist without lesions. Neck: trachea midline, no mass, symmetric, no thyromegaly or nodules, no adenopathy Respiratory: lungs CTA, respirations non labored. Cardiovascular: regular rate and rhythm, no murmur, no pedal edema or varicosities. Gastrointestinal: obese, soft, non distended, no tenderness, no masses, large left inguinal hernia extending into scrotum, nontender, no skin changes, nonreducible; diastasis recti no, no hepatosplenomegaly; normal bs Lymphatic: no cervical adenopathy, no inguinal adenopathy. Musculoskeletal: normal gait, digits and nails without infection, nodes, cyanosis, clubbing. Skin: no rashes, no lesions, no ulcers, no subcutaneous nodules, induration. Psychiatric/Neuro: oriented to time, place, person, judgement normal, affect appropriate for age, insight intact, no focal deficits. Tests: x-rays reviewed, review of old records completed, Discussed surgical options, risks, and possible complications with patient. Assessment/Plan 1. Irreducible left inguinal hernia (K40.30: Unilateral inguinal hernia, with obstruction, without gangrene, not specified as recurrent) plan left inguinal herniorrhaphy with mesh insertion, informed consent obtained. Follow-up No qualifying data available Problem List/Past Medical History Ongoing BMI 28.0-28.9,adult History of diverticulitis HTN (hypertension) Insomnia Irreducible left inguinal hernia Left inguinal hernia Historical Diabetes Procedure/Surgical History Colonoscopy, Repair of right inguinal hernia, Simple dental extraction. Medications lisinopril 10 mg Tab, 10 mg= 1 tab(s), Oral, Daily trazodone, 100 mg, Oral, Once a day (at bedtime) Allergies No Known Allergies No Known Medication Allergies Social History Alcohol - Denies Alcohol Use, 09/29/2022 Substance Abuse - Denies Substance Abuse, 09/29/2022 Tobacco Never (less than 100 in lifetime) Tobacco Use:. Never Smokeless Tobacco Use:., 09/29/2022 Family History Diabetes mellitus type 2: Mother and Sister. Heart disease: Mother and Father. Immunizations Vaccine Date Status Comments influenza virus vaccine, inactivated - Not Given Patient Refuses SARS-CoV-2 mRNA (tozinameran 5y-11y) vac - Not Given [facility] Center[facility] on above:Result Comment: Electronically Signed By: Janet MALHOTRA MD\.br\Date and Time Signed: 09/29/22 15:45 EDTEvaluation + Plan note No data available for this section General [facility] [place] Evaluation + Plan note Future Appointments Appointment Date:11/18/2022 04:00:00 PM Scheduled Provider:Janet MALHOTRA MD Location:[facility] Appointment Type: Post Op 15 General Surgery [facility] Evaluation noteNort [facility]ni[facility] Other History general Narrative - ReportedNort [facility]ni[facility] Other History general Narrative - Reported* Type Description Date Medical History HTN (hypertension) Medical History Insomnia Surgical History hernia repair [facility] Other Hospital Discharge instructions No data available for this section [facility] [place] Progress note No data available for this section [facility] [place] Summary Purpose Family History No Family History Records FoundNo Family History Records Found Advance Directives No Advanced Directives Records FoundNo Advanced Directives Records Found Additional Source Comments Patient Care team informatio n (unrecognized section and content) Personnel Name: Lyn Rodriguez MD Address: Address: [address] [place], [place] [address] Personnel Name: Michael HAMM Lyn Address: Address: [address] [place] [address] Personnel Name: Lyn Rodriguez MD Address: Address: [address] [place] [address] (unrecognized sect ion and content) No Status Records FoundNo Status Records Found INFORMATION SOURCE (unrecogn ized section and content) DATE CREATED AUTHOR 10/20/2022 [facility] DATE CREATED AUTHOR AUTHOR'S ORGANIZ ATION 11/19/2022 [facility] REASON FOR VISIT (unrecogniz ed section and content) COUGH, CONGESTION, HEADACHE FOR RECORDS PERTAINING TO PATIENTS WHO ARE OR HAVE BEEN ENROLLED IN A CHEMICAL DEPENDENCY/SUBSTANCEABUSE PROGRAM, SOME INFORMATION MAY BE OMITTED. This clinical summary was aggregated from multiple sources. Caution should be exercised in using it in the provision of clinical care. This summary normalizes information from multiple sources, and as a consequence, information in this document may materially change the coding, format and clinical context of patient data. In addition, data may be omitted in some cases. CLINICAL DECISIONS SHOULD BE BASED ON THE PRIMARY CLINICAL RECORDS. [facility] [employer] [facility]. provides no warranty or guarantee of the accuracy or completeness of information in this document.
== END 2024-09-05 15:54 | disposition home or self-care (01) ==
LOC: RAD 15:56
PROVIDERS: PCP Family Medicine; Visit Provider Family Medicine
DX: R05.9 Cough, unspecified (principal)
CPT/HCPCS: 71046

== ENCOUNTER 2024-12-07 08:14 | Outpatient (OUT) | payer BC, SELFPAY ==
--- OUTSIDE RECORDS SUMMARY | 2024-09-04 12:00 | XMS_ITS ---
Author Organization The [facility] in [place] Address [address] [place] [address] Care Team Providers Care Nut Culler Name Role Phone ROS RODRIGUEZ MD Primary Care Provider Ros Rodriguez Unavailable [phone] REASON FOR VISIT update cough Medications Medication SIG (Take, Route, Fr equency, Duration) Notes Start Date End Date Status Azithromycin 250 MG Take 2 tablets Orall y one day one; take 1 tablet daily for four days for 5 09/04/2024 Active Encounters Encounter Location Date Provider Diagnosis [facility] [address] [facility] [place] [address] 09/04/2024 Ros Rodriguez Cough R05.9 Assessments Encounter Date Diagnosis (ICD Code) Assessment Notes Treatment Notes Treatment Clinical Notes Section Notes 09/04/2024 Cough (ICD-10 - R05.9) Plan Of Treatment Medication Medication Name Sig Start Date Stop Date Notes Azithromycin 250 MG Take 2 tablets Orall y one day one; take 1 tablet daily for four days for 5 09/04/2024 Pending Test Test Name Order Date XR CHEST 2 V 09/04/2024 Progress Notes * Mo SOUZA WDOB:[birth year] (74 yo M)Acc No.[id number]:09/04/2024 Patient: Mo BLOOD :1950 A ge:74 Y S ex:Male Address:[address] [place] [address], [address], [place] [address] * Refills Start Azithromycin Tablet, 250 MG, Orally, 6, Take 2 tablets, one day one; take 1 tablet daily for four days, 5, Refills=0 Subjective: * Chief Complaints: * U pdate cough * Medical History: * Surgical History: * Hospitalization/Major Diagno stic Procedure: * Medications: Objective: * Vitals: * Physical Examination: Assessment: * Assessment: 1. [facility] - R05.9 (Primary) Plan: * Treatment: 2. O thers Start Azithromycin Tablet, 250 MG, Take 2 tablets, Orally, one day one; take 1 tablet daily for four days, 5, 6, Refills 0. * Procedure Codes: * true * Date: Generated for Lolis devine/Skip/Pineda on: 12/07/2024 08:23 AM EDT
--- OUTSIDE RECORDS SUMMARY | 2024-09-05 15:00 | XMS_ITS ---
Author Organization The [facility] in [place] Address [address] [place] [address] Care Team Providers Care Vice President Marketing & Development Name Role Phone ROS RODRIGUEZ MD Primary Care Provider [phone] Ros Rodriguez Unavailable [phone] REASON FOR VISIT Chest xray Encounters Encounter Location Date Provider Diagnosis [facility] [address] [facility] [address] 09/05/2024 Ros Rodriguez Plan Of Treatment No Information Progress Notes * Mo SOUZA WDOB:[birth year] (74 yo M)Acc No.[id number]:09/05/2024 Patient: Mo BLOOD :1950 A ge:74 Y S ex:Male Address:[address] [facility], [address], [place] [address] * true * Date: Generated for Lolis devine/Skip/eTransmitting on: 0 12/07/2024 08:23 AM EDT
--- OUTSIDE RECORDS SUMMARY | 2024-12-06 06:53 | XMS_ITS | Continuity of Care Document ---
Author Organization [facility] Address [address] [place] [address] Phone Care Team Providers Care Fish Seiner Name Role Phone Deep Rodriguez MD Primary Care Provider Naz Cain APRN Attending Provider Care Teams Patient Care Team Team Status: Active Member Role Status Dates Deep Rodriguez MD Primary Care Provider Active Patient Care Team Team Status: Inactive Member Role Status Dates Deep Rodriguez MD Primary Care Provider Active Start: December 06, 2024 End: December 06, 2024 CHIQUITA Arrington RN [employer] Attending Provider Active Start: December 06 End: December 06, 2024 Chief Complaint and Reason for Visit Chief Complaint Admit Date Cough,congestion December 06, 2024 10:34 am Allergies, Adverse Reactions, Alerts Allergen Type Severity Reaction Last Updated Verified Status No Known Allergies Allergy Unknown December 06, 2024 10:34a m Yes Active Social History Smoking Status Unknown if ever smoked Observation Status Observation Response Date of Response Legal Sex Male (finding) Sex Assigned At Male [birth year] Family History Relationship Condition Age at Onset Recorded Date/T domingo father Hypertension Unknown Unknown Heart disease Unknown mother Unknown Heart disease Unknown Hypertension Unknown sister Hypertension Unknown Diabetes mellitus Unknown Medications Medication Status Dose Units Route Directions Qty Days St art Date Stop Date End Date Instructions Adherence Irbesartan 150 mg tablet Active MG PO December 06, 2024 12:00a m Complies with drug therapy Vital Signs Vital Reading Result Reference Range Collection Date/Time Height 67 [in_i] December 06, 2024 10:40am Weight 86.23 kg December 06, 2024 10:40am Body Temperature 98.7 [degF] 97.6-99.0 December 06 10:40am Heart Rate 76 /min 60-100 December 06, 2024 10:40am Respiratory rate 18 /min 12-24 December 06, 2 025 10:40am Oxygen saturation by Pulse oximetry 98 % 95-100 December 06, 2024 10:40 am BP Systolic 153 mm[Hg] 100-140 December 06, 2024 10:40am BP Diastolic 82 mm[Hg] 60-100 December 06, 2024 10:40am BMI (Body Mass Index) 29.7 kg/m2 December 062024 10:40am Advance Directives Advance Directive Response Recorded Date/ Time Advance Directives No December 06 10:32am Insurance Providers Guarantor Moprateek Souza Address [address] [place] [address] [address] [facility] [phone] Contact Info. Home Phone: Payer Policy Id Subscriber's Name Subscriber Id Effectiv e Date Expiration Date Adrian BOWLING [id number] Mo Souza [id number] Encounters Encounter Location(s) Arrival/Admit Date Discharge/Depart Date Provider(s) Departed Physician/Prov ider Office Visit -[facility] Noé December 06, 2024 10:34am December 06, 2024 10:51am Naz Cain APRN
--- OUTSIDE RECORDS SUMMARY | 2024-12-06 10:45 | XMS_ITS ---
Author Organization [facility] in [place] Address [address] [place] [address] Care Team Providers Care Plant Attendant Name Role Phone ROS RODRIGUEZ MD Primary Care Provider [phone] Ros Rodriguez Unavailable [phone] Allergies No Known Allergies REASON FOR VISIT elevated bp, Persistant Cough/ Possible Imaging Medications Medication SIG (Take, Route, Fr equency, Duration) Notes Start Date End Date Status Irbesartan 150 MG 1 tablet Orally Once a day for 30 days 06/23/2024 Active Social History Tobacco Use: Social History Observation Description Date Details (start date - stop date) Never Smoker NA - NA Tobacco Use/Smoking Question Answer Notes Patient is a nonsmoker AUDIT-C (Standard) Question Answer Notes Did you have a drink containing alcohol in the p ast year? No Points 0 Interpretation Negative Vital Signs Blood pressure systolic 124 mm Hg 12/07/19 25 Blood pressure diastolic 82 mm Hg 025 Height 66 in 12/06/2024 Weight 189 lbs 12/06/2024 BMI 30.5 kg/m2 12/06/2024 Encounters Encounter Location Date Provider Diagnosis [facility] [address] [place] [address] 12/06/2024 Ros Rodriguez Benign essential hypertension I10 and Diabetes mellitus type II, uncontrolled E11.65 Assessments Encounter Date Diagnosis (ICD Code) Assessment Notes Treatment Notes Treatment Clinical Notes Section Notes 12/06/2024 Benign essential hypertension (ICD-10 - I10) adjusting meds 12/06/2024 Diabetes mellitus type II, uncontrolled (ICD-10 - E11.65) not checking sugars - diet stable Plan Of Treatment Treatment Notes Assessment Notes Benign essential hypertension adjusting meds Diabetes mellitus type II, uncontrolled not checking sugars - diet stable Pending Test Test Name Order Date HEMOGLOBIN A1C (GLYCO) 12/06/2024 LIPID PANEL (CHOL/TRIG/HDL/LDL) 12/07/19 25 High Sensitivity Troponin 12/06/2024 BNP 12/06/2024 XR CHEST 2 V 12/06/2024 THYROID PANEL (T4/TSH/FREE T3) 5 PSA, SCREENING 12/06/2024 CMP (COMP MET NEWELL) w/eGFR CKD-EPI 2024 CBC WITH DIFF 12/06/2024 Progress Notes * Mo VILLANUEVA WDOB:[birth year] (74 yo M)Acc No.[id number]:12/06/2024 UNLOCKED PROGRESS NOTE Progress Note Patient: Mo BLOOD Provider: Matt Rodriguez ([facility])MD :1950 A ge:74 Y S ex:Male Date:12/06/2024 Address:[address] [place] [address], [facility] Pcp:ROS RODRIGUEZ MD Check In:02:31 PM ESTCheck O ut:03:07 PM EST Subjective: * Chief Complaints: * 1 . Elevated bp. 2. Persistant Cough/ Possible Imaging. * HPI: G eneral: Sen in urgen care - BP high ethet - referred here cough intermittant - better now. * ROS: E ENT: hearing changes d enies. v isual changes d enies.�non-healing mouth sores d enies. s wollen glands or neck lumps d enies. h oarseness d enies. s ore throat d enies. d ifficulty swallowing d enies. n ose bleeds d enies. n sidney congestion d enies. e ar ache d enies. e ar discharge�denies. r inging in ears d enies. l ight sensitivity d enies. e ye pain d enies. b lurring d enies. e ye irritation d enies. d ouble vision d enies.�vision loss d enies. G eneral/Constitutional: Sweats: D enies. F atigue d enies. S leep problems d enies. A norexia d enies. M alaise d enies. W eight loss d enies.�Fatigue or Weakness d enies. F ever or Chills d enies. C ardiovascular: Shortness of Breath w/lying flat d enies. L ightheadedness/dizziness d enies. C hest tightness/ heavy pressure d enies. S welling of legs, ankles, or feet d enies. W aking up with shortness of breath d enies. C hest pain denies. P alpitations d enies. W eight gain d enies. R espiratory: Chronic or frequent cough d enies. C oughing up blood�denies. D ifficulty breathing d enies. P roductive cough d enies. S noring�denies. S hortness of breath that awakens from sleep (PND) d enies. C hest pain d enies. S putum production d enies. W heezing d enies. M usculoskeletal: Joint pain d enies. J oint Fluid d enies. B ack pain d enies. K nee pain d enies. N kelsi pain d enies. J oint Stiffness d enies. M uscle cramps d enies. W eakness of muscles d enies. A rthritis d enies. M uscle aches d enies. P ain in shoulder(s) d enies. S wollen joints d enies. * Medical History: I nguinal hernia, Over weight, Clinical diagnosis of COVID-19, Acute bronchitis, Epistaxis, Benign essential hypertension, Diabetes mellitus type II, uncontrolled, Diverticulitis, Insomnia, Fatigue, Acquired hemangioma. * Surgical History: L eft Inguinal Hernia 10/14/2022. * Hospitalization/Major Diagno stic Procedure: D enies Past Hospitalization. * Family History: F ather: , Heart Disease, diagnosed with Unspecified heart disease. M other: . S ister(s): alive. 1 sister(s) . . * Social History: T obacco Use: T obacco Use/Smoking P atient is a n onsmoker D rug/Alcohol: A JOANNE-C (Standard) D id you have a drink containing alcohol in the past year? N o P oints 0 I nterpretation N egative * Medications: T aking Irbesartan 150 MG Tablet 1 tablet Orally Once a day , Discontinued Azithromycin 250 MG Tablet Take 2 tablets Orally one day one; take 1 tablet daily for four days , Discontinued Cefdinir 300 MG Capsule 2 capsule Orally once a day , Discontinued levoFLOXacin 500 MG Tablet 1 tablet Orally Once a day , Discontinued predniSONE 20 MG Tablet 2 tablets Orally Once a day , Medication List reviewed and reconciled with the patient * Allergies: N .K.D.A. Objective: * Vitals: W t:189lbs, Ht: 66 in, BP:124/82mm Hg, BMI:30.5Index, Ht-cm: 167.64 cm, Wt-k.73 kg. * Examination: P hysical Exam: GENERAL: w ell developed, well nourished, in no acute distress. HEAD: n ormocephalic/atraumatic. EYES: p upils equal, round and reactive to light, conjunctivae and sclerae normal. EARS: n o deformity or lesion of external ear, canals and TM appear normal bilaterally, TM's intact, not inflamed with normal light reflex, hearing grossly normal to conversational speech. NOSE: n o deformity, discharge, inflammation, or lesions.� MOUTH: m ucous membranes moist, normal oropharynx and posterior pharynx without lesions or exudates, tongue normal, dentition normal. NECK: n kelsi supple, no masses or palpable cervical nodes, trachea midline, thyroid without nodules, masses, tenderness, or enlargement. CHEST: n o chest wall deformity, no chest wall tenderness.� LUNGS: n ormal respiratory effort and clear to auscultation, no wheezes, rales, or rhonchi, good air exchange. CARDIO: r egular rate and rhythm, normal S1 and S2, nor murmur, rub, or gallop. PULSES: n ormal capillary refill. ABDOMEN: s oft, non-distended, non-tender, no masses. MUSCULOSKELETAL: n o deformity or scoliosis noted, normal range of motion, joints normal, no erythema, edema, effusion, or ecchymosis. EXTREMITY: n o clubbing, cyanosis, edema, or deformity with normal ROM in both upper and lower bilateral extremities. NEUROLOGIC: g rossly normal. SKIN: n o rashes, ulcerations, or suspicious lesions. LYMPH NODES: n o cervical adenopathy, nodes normal. MENTAL STATUS: a lert and oriented x3, normal mood and affect. Assessment: * Assessment: 1. B enign essential hypertension - I10 (Primary) 2 . D iabetes mellitus type II, uncontrolled - E11.65 Plan: * Treatment: 2. D iabetes mellitus type II, uncontrolled I maging: XR CHEST 2 V Notes: not checking sugars - diet stable * Preventive Medicine: Screenings/Counseling: B MN ACTION PLAN Above Normal BMI Follow-up D ietary management education, guidance, and counseling * * Electronic signature of Ros Rodriguez MD, [id number] on 12/07/2024 at 08:22 AM EDT Sign off status: Pending Visit Status: C HK (Check Out) * Provider: Matt Rodriguez ([facility])MD Date: 12/06/2024 Generated for Printi ng/Faxing/eTransmitting on: 12/07/2024 08:22 AM EDT History and Physical Notes * HPI (History of Present Illness) Category Sub-Category Detail Notes Category Not es General Sen in urgen care - BP high ethet - referred here cough intermittant - better now Examination Category Sub-Category Detail Notes Category Not es Physical Exam GENERAL: well developed, well nourished, in no acute distress HEAD: normocephalic/atraum atic EYES: pupils equal, round and reactive to light, conjunctivae and sclerae normal EARS: no deformity or lesi on of external ear, canals and TM appear normal bilaterally, TM's intact, not inflamed with normal light reflex, hearing grossly normal to conversational speech NOSE: no deformity, discha rge, inflammation, or lesions MOUTH: mucous membranes sunshine st, normal oropharynx and posterior pharynx without lesions or exudates, tongue normal, dentition normal NECK: neck supple, no mass es or palpable cervical nodes, trachea midline, thyroid without nodules, masses, tenderness, or enlargement CHEST: no chest wall deform ity, no chest wall tenderness LUNGS: normal respiratory e ffort and clear to auscultation, no wheezes, rales, or rhonchi, good air exchange CARDIO: regular rate and rhy thm, normal S1 and S2, nor murmur, rub, or gallop PULSES: normal capillary ref ill ABDOMEN: soft, non-distended, non-tender, no masses RECTAL: MUSCULOSKELETAL: no deformity or scol iosis noted, normal range of motion, joints normal, no erythema, edema, effusion, or ecchymosis EXTREMITY: no clubbing, cyanosi s, edema, or deformity with normal ROM in both upper and lower bilateral extremities NEUROLOGIC: grossly normal SKIN: no rashes, ulceratio ns, or suspicious lesions LYMPH NODES: no cervical adenopat hy, nodes normal MENTAL STATUS: alert and oriented x 3, normal mood and affect
--- OUTSIDE RECORDS SUMMARY | 2024-12-07 08:23 | XMS_ITS | Patient Health Record ---
Author Organization [facility] [place] Address [address] [place] [address] Care Team Providers Care Time Clock Repairer Name Role Phone ROS RODRIGUEZ MD Primary Care Provider [phone] Ros Rodriguez Unavailable [phone] Allergies No Known Allergies Results Component Value Reference Range Notes XR chest 2V Reviewed date:09/05/2024 07:01:09 PM Interpretation: Performing Lab: Notes/Report: Source Facility: [place] [address] XRay Report Signed Patient: TENZIN SOUZA MR#: [id number] : 1950 Acct:[id number] Age/Sex: 74 / M ADM Date: 09/05/24 Loc: RAD Attending Dr: Lyn Rodriguez M.D. Ordering Physician: Lyn Rodriguez M.D. Date of Service: 09/05/24 Procedure(s): XR chest 2V Accession Number(s): [id number] cc: Lyn Rodriguez M.D. [place] [id number] Patient Name: TENZIN SOUZA MRN: [id number] date: 1950 Sex: M Assigned Patient Location: RAD Current Patient Location: RAD Accession/Order Number: [id number] Exam Date: 09/05/2024 17:41 Report Date: 09/05/2024 17:42 At the request of: LYN RODRIGUEZ MD Procedure: XR chest 2V Plain film chest 2 view HISTORY: Acute cough for 3 weeks COMPARISON: None FINDINGS: SUPPORT DEVICES: None POSTSURGICAL CHANGES: None HEART: Within normal limits PULMONARY KENDALL: Within normal limits MEDIASTINUM: Unremarkable LUNGS AND PLEURA: No acute lung process, pleural effusion or pneumothorax identified. BONY STRUCTURES: Thoracic hyperostosis/spondylosis ADDITIONAL FINDINGS None XR/XR chest 2V IMPRESSION: No acute process. Impression dictated by: Rik Barrientos M.D.09/05/2024 5:42 PM Dictation [facility] Electron[facility] authenticated by: [id number] Y Date: 09/05/2024 17:42 Dictated By: Rik Barrientos D.O. Signed By: 09/05/241744 DD/ 41 TD/TT: Sr. Payroll Processor: [place] [address] XRay Report Signed Patient: CASTRO MR#: [id number] : 1950 Acct:[id number] Age/Sex: 74 / M ADM Date: 09/05/24 Loc: RAD Attending Dr: Lyn Rodriguez M.D. Ordering Physician: Lyn Rodriguez M.D. Date of Service: 09/05/24 Procedure(s): XR chest 2V Accession Number(s): [id number] cc: Lyn Rodriguez M.D. [place] [address] Patient Name: TENZIN SOUZA MRN: [id number] date: 1950 Sex: M Assigned Patient Location: RAD Current Patient Location: RAD Accession/Order Numb er: [id number] Exam Date: 09/05/2024 17:41 Report Date: 09/05/2024 17:42 At the request of: LYN RODRIGUEZ MD Procedure: XR chest 2V Plain film chest 2 view HISTORY: Acute cough for 3 weeks COMPARISON: None FINDINGS: SUPPORT DEVICES: None POSTSURGICAL CHANGES: None HEART: Within normal limits PULMONARY KENDALL: With in normal limits MEDIASTINUM: Unremarkable LUNGS AND PLEURA: No acute lung process, pleural effusion or pneumothorax identified. BONY STRUCTURES: Tho racic hyperostosis/spondylosis ADDITIONAL FINDINGS None X R/XR chest 2V IMPRESSION: No acute process. Impression dictated by: Rik Barrientos M.D.09/05/2024 5:42 PM Dictation Location: [place] [address] [facility] aut[facility] nticated by: [id number] Y Date: 09/05/2024 17:42 Dictated By: Rik Barrientos D.O. Signed By: 09/05/241744 DD/ 41 TD/TT: Sr. Payroll Processor: Reason For Referral No Information Medications Medication SIG (Take, Route, Fr equency, [...] ast year? No Points 0 Interpretation Negative Problems Problem Type SNOMED Code ICD Code Onset Dates Problem Status W/U Status Risk Notes Problem Fatigue (49672708) Fatigue (R53.83) Active confirmed Problem Insomnia (009974982) Insomnia (G47.00) Active confirmed Problem Benign essential hypertension (9686758) Benign essential hypertension (I10) Active confirmed Problem Diverticulitis (85298916) Diverticulitis (K57.92) Active confirmed Problem 086361952 Enlarged prostat e (N40.0) Active confirmed Problem Type II diabetes mellitus uncontrolled (921498256) Diabetes mellitus type II, uncontrolled (E11.65) Active confirmed Problem Acute bronchiolitis (5962390) Acute bronchiolitis (J21.9) Active confirmed Problem 732380444 COVID-19 (U07.1) Active confirmed Vital Signs Blood pressure diastolic 82 mm Hg 12/06/2024 Height 66 in 12/06/2024 Blood pressure systolic 124 mm Hg 12/06/2024 Weight 189 lbs 12/06/2024 BMI 30.5 kg/m2 12/06/2024 Encounters Encounter Location Date Provider Diagnosis [facility] [address] [place] [address] 02/09/2024 Ros Rodriguez [facility] [address] [facility] [place] [address] 08/31/2024 Ros Rodriguez [facility] [address] [facility] [place] [address] 09/04/2024 Ros Rodriguez Cough R05.9 [facility] [address] [facility] [place] [address] 09/05/2024 Ros Cervantesy [facility] [address] [facility] [place] [address] 06/23/2024 Ros Hoy Benign essential hypertension I10 and Diabetes mellitus type II, uncontrolled E11.65 [facility] [address] [facility] [place] [address] 08/25/2024 Ros Rodriguez Acute bronchitis, unspecified organism J20.9 [facility] [address] [facility] [place] [address] 12/06/2024 Ros Hoy Benign essential hypertension I10 and Diabetes mellitus type II, uncontrolled E11.65 Assessments Encounter Date Diagnosis (ICD Code) Assessment Notes Treatment Notes Treatment Clinical Notes Section Notes 06/23/2024 Benign essential hypertension (ICD-10 - I10) 06/23/2024 Diabetes mellitus type II, uncontrolled (ICD-10 - E11.65) 08/25/2024 Acute bronchitis, unspecified organism (ICD-10 - J20.9) Rest and drink more liquids, especially water. You may use a humidifier or vaporizer to help keep the drainage moist. Butt-lel-xcsjydp Nasal Saline may help the stuffy and runny nose. Use Ibuprofen and or Tylenol as needed for fever, chills, body aches or pain. Children 5 years old should not be given jjbn-azj-lkctwbq cough and cold medications such as guaifenesin and dextromethorphan. If you're over age 5, you may try yzuf-gxn-lgwcpma cold medications such as guaifenesin and dextromethorphan, or multi-symptom cold reliever such as Dayquil to help reduce the symptoms. Antibiotics have been prescribed. You should take these until completed and follow the directions. Antibiotics can sometimes cause upset stomach, and in rare cases, serious allergic reactions or serious gastrointestinal problems. If you start having severe abdominal pain, severe vomiting, or bloody diarrhea, you should be reevaluated by your physician or urgent care immediately. Follow up with your Primary Care Provider or return to clinic if symptoms do not improve within 3-5 days. If you develop severe symptoms such as shortness of breath, repeated vomiting, coughing up blood, or chest pain you should go to the emergency room or call 911 12/06/2024 Benign essential hypertension (ICD-10 - I10) adjusting meds 12/06/2024 Diabetes mellitus type II, uncontrolled (ICD-10 - E11.65) not checking sugars - diet stable 09/04/2024 Cough (ICD-10 - R05.9) Plan Of Treatment Pending Test Test Name Order Date HEMOGLOBIN A1C (GLYCO) 06/23/2024 HEMOGLOBIN A1C (GLYCO) 12/06/2024 LIPID PANEL (CHOL/TRIG/HDL/LDL) 06/23/19 25 LIPID PANEL (CHOL/TRIG/HDL/LDL) 12/07/19 25 CBC WITH DIFF 06/23/2024 URIC ACID 06/23/2024 FREE AND TOTAL PSA 09/14/2022 PSA, TOTAL 06/23/2024 COVID 04/13/2023 High Sensitivity Troponin 12/06/2024 STOOL OCCULT BLOOD 06/23/2024 BNP 12/06/2024 XR CHEST 2 V 12/06/2024 XR CHEST 2 V 09/04/2024 THYROID PANEL (T4/TSH/FREE T3) 5 THYROID PANEL (T4/TSH/FREE T3) 5 PSA, SCREENING 12/06/2024 CMP (COMP MET NEWELL) w/eGFR CKD-EPI 2024 CMP (COMP MET NEWELL) w/eGFR CKD-EPI 2024 CBC WITH DIFF 12/06/2024 Insurance Providers Payer Name Payer Address Payer Phone Subscriber Number Group Number Insured Name Patient Relationship to Insured Coverage Start Date Coverage End Date [employer] [address] [place] [phone] [id number] Tenzin Souza Self - patient is the insured Medical (General) History Medical History History ICD Code Inguinal hernia K40.90 Over weight E66.3 Clinical diagnosis of COVID-19 U07.1 Acute bronchitis J20.9 Epistaxis R04.0 Benign essential hypertension I10 Diabetes mellitus type II, uncontrolled E11.65 Diverticulitis K57.92 Insomnia G47.00 Fatigue R53.83 Acquired hemangioma D18.00 Surgical History Surgery Date(Month/Year) Left Inguinal Hernia 10/14/2022
--- OUTSIDE RECORDS SUMMARY | 2024-12-07 08:26 | XMS_ITS | CCD ---
Author Organization [facility] CliniSyhi Care Team Providers Care Fixed Income Analyst Name Role Phone Nata Echavarria Unavailable Lyn Rodriguez Primary Care Physician MICHELLE ., DR NICHOLSON Admitting Unavailable HOY ., [...] Attending Unavailable NILL, Janet R Attending Unavailable HoyLyn Referring Unavailable NILL, Janet R Attending Unavailable NILL, Janet R Attending Unavailable NILL, Janet R Attending Unavailable Kenney, Puja Unavailable Lyn Rodriguez MD Primary Care Provider [phone] Naz Cain APRN Attending Provider Allergies Allergy Classification Reported Allergen(s) Allergy Type Date of Onset Reaction(s) Facility (1 source) No Known Medication Allergies; Translations: [No Known Medication Allergies] Propensity to adverse reactions (disorder) [facility] Repository Medications Current Medications Medication Drug Class(es) [...] 30 mg oral tablet (1 source) Uncompetitive R-fddjzc-J-aspartate Receptor Antagonist, Sigma-1 Agonist Start: 12-06-2022 [place] DMT 30-30 MG 1 tablet Orally every 6-8 hours for 7 days Dec, Active fluticasone propionate 0.05 mg/actuat metered dose nasal spray (1 source) Corticosteroid Start: 12-06-2022 take 1 spray(s) nasal route once daily Fluticasone Propionate 50 MCG/ACT 1 spray in each nostril Nasally Once a day for 14 day(s) Dec, Active irbesartan 150 mg oral tablet (1 source) Angiotensin 2 Receptor Kenji Start: 12-06-2024 Irbesartan 150 mg tablet Active MG PO December 06, 2024 12:00am Complies with drug therapy lisinopril 10 mg oral tablet (5 sources) [...] Facility COVID Quick Testingon 2022 Result Negative [facility] Other Ambulatory Visit Summaryon 0 11-18-2022 Ambulatory Visit Summary TENZIN SOUZA :1950 Visit Date:11/18/2022 Ambulatory Visit Instructions Your [...] are no longer receiving treatment for. Diabetes Emily [facility] General Surgery Office/Clini c Noteon 11-18-2022 General [...] follow-up visit, related to the original procedure [id number] Follow-up With When Contact Information MARYA HAMM, TERESA Perez Only if needed [address] [place] [address]- Additional Instructions: Problem List/Past Medical [...] - Not Given Patient Refuses SARS-CoV-2 mRNA (toeleonorarose 5y-11y) vac - Not Given Patient Refuses [facility] Comment on above: Result Comment: Elec tronically Signed By: Janet MALHOTRA MD\.br\Date and Time Signed: 11/18/22 17:20 EDT Formson 11-06-2022 Forms [id number] #1.00CD:127 [facility] Provider Letteron 11-06-2022 Provider Letter November 06, 2022 TENZIN SOUZA [address] [place] [address] : 1950 To Whom It May Concern, The above named person may return to work without restrictions 11/30/22. Sincerely, Dr. Janet Malhotra MD General Surgery [facility] Ambulatory Visit Summaryon 0 11-04-2022 Ambulatory Visit Summary TENZIN SOUZA :1950 Visit Date:11/04/2022 Ambulatory Visit Instructions Your [...] What to do next Scheduled Follow-Up Appointments Wednesday 4:00 PM EDT With: Janet MALHOTRA MD Where: General Surgery Marya/Clara Florez [facility] General Surgery Office/Clini c Noteon 11-04-2022 [...] (tozinameran 5y-11y) vac - Not Given Patient Refuses Normal [facility] Comment on above: Result Comment: Elec tronically Signed By: Janet MALHOTRA MD\.br\Date and Time Signed: 11/04/22 13:58 EDT Ambulatory Visit Summaryon 0 10-23-2022 Ambulatory Visit Summary TENZIN SOUZA :1950 Visit Date:10/23/2022 Ambulatory Visit Instructions Your [...] Janet MALHOTRA MD Where: General Surgery Marya/Clara Florez Normal [facility] General Surgery Office/Clini c Noteon 10-23-2022 General [...] (tozinameran 5y-11y) vac - Not Given Patient Refuses Normal [facility] Comment on above: Result Comment: Elec tronically Signed By: MARYA HAMM, Janet Berger\Reedbr\Date and Time Signed: 10/23/22 14:18 EDT Formson 10-20-2022 Forms [id number] #1.00CD:127 Normal [facility] Operative Reporton Operative Report [id number] #1.00CD:127 Normal [facility] Provider Letteron 10-13-2022 Provider Letter October 13, 2022 TENZIN SOUZA [place] [address] [place] [address] TENZIN SOUZA 1950 To Whom It May Concern, Please excuse above patient from work. Date of Illness: From: 10/14/2022 To: 11/11/2022 (approximately) May Return to Work On: TBD Restrictions: _ Comments: Patient is having surgery. Return to work will be determined at follow up. Sincerely, Janet Malhotra MD FT General Surgery Normal [facility] Lab Reportson 10-05-2022 Lab Reports [id number] #1.00CD:127 Normal [facility] PSA, FREE AND TOTAL RATIOon 10-03-2022 % Free PSA 52.8 % [facility] Comment on above: Result Comment: The table [...] men. Performed By: #### P SAFREE #### [facility] [address] [place] [address] Dr. Fortino Schroeder Prostate specific Ag [Mass/Vol] 2.5 ng/mL Normal 0.0-4.0 [facility] Comment on above: Result Comment: Peyman castellanos ECLIA methodology. . According to the [employer], Serum PSA should decrease and [...] disease. Performed By: #### P SAFREE #### [facility] [address] [place] [address] Dr. Fortino Schrodeer PSA, Free 1.32 ng/mL Normal N/A [facility] Comment on above: Result Comment: Peyman castellanos ECLIA methodology. Performed By: #### P SAFREE #### [facility] [address] [place] [address] Dr. Fortino Schroeder ECG 12-Leadon 10-02-2022 ECG 12-Lead [id number] #1.00CD:127 Normal [facility] PROF CHEM 8 (BAS METB)on Anion gap [Moles/Vol] 13.0 mmol/L Normal [facility] Comment on above: Performed By: #### B MP #### [facility] [address] [place] [address] Dr. Fortino Schroeder Calcium [Mass/Vol] 8.8 mg/dL Normal 8.5-10.1 [facility] Comment on above: Performed By: #### B MP #### [facility] [address] [place] [address] Dr. Fortino Schroeder Chloride [Moles/Vol] 105 mmol/L Normal 98-107 [facility] Comment on above: Performed By: #### B MP #### [facility] [address] [address] [address] Fortino Schroeder CO2 [Moles/Vol] 27.3 mmol/L Normal 21.0-32.0 [facility] Comment on above: Performed By: #### B MP #### [facility] [address] [address] [address] Fortino Schroeder Creatinine [Mass/Vol] 1.63 mg/dL Critically high 0.70-1.30 [facility] Comment on above: Performed By: #### B MP #### [facility] [address] [address] [address] Fortino Schroeder EGFR-AF PALAUAN 51 mL/min/1.73m2 Critically low >=60 [facility] Comment on above: Performed By: #### B MP #### [facility] [address] [address] [address] Fortino Schroeder EGFR-NON AF PALAUAN 42 mL/min/1.73m2 Critically low >=60 [facility] Comment on above: Performed By: #### B MP #### [facility] [address] [address] [address] Fortino Schroeder Glucose [Mass/Vol] 104 mg/dL Normal 74-106 [facility] Comment on above: Performed By: #### B MP #### [facility] [address] [address] [address] Fortino Schroeder Potassium [Moles/Vol] 5.3 mmol/L Critically high 3.5-5.1 [facility] Comment on above: Performed By: #### B MP #### [facility] [address] [address] [address] Fortino Schroeder Sodium [Moles/Vol] 140 mmol/L Normal 136-145 [facility] Comment on above: Performed By: #### B MP #### [facility] [address] [address] [address] Fortino Schroeder Urea nitrogen [Mass/Vol] 25.0 mg/dL Critically high 7.0-18.0 [facility] Comment on above: Performed By: #### B MP #### [facility] [address] [address] [address] Fortino Schroeder Urea nitrogen/Creatini ne [Mass ratio] 15.3 mg/mg Normal [facility] Comment on above: Performed By: #### B MP #### [facility] [address] [address] [address] Fortino Schroeder Facesheeton 10-01-2022 Facesheet [id number] #1.00CD:127 Normal [facility] Consent for Procedure/Surger yon 09-30-2022 Consent for Procedure/Surgery [id number]# 1.00CD:127 [facility] Pre-Certification Formon Pre-Certification Form [id number]#1.00CD:127 Normal [facility] Provider Letter FTMCon 09-30 Provider Letter FT September 30, [address] [place] [address] TENZIN SOUZA 1950 To Whom It May Concern, Please excuse above patient from work 10/02/2022. Sincerely, Dr. Janet Malhotra MD General Surgery [facility] Ambulatory Visit Summaryon 0 09-29-2022 Ambulatory Visit Summary TENZIN SOUZA :1950 Visit Date:09/29/2022 Ambulatory Visit Instructions Your [...] no longer receiving treatment for. Diabetes Normal [facility] Physician Referralon 023 Physician Referral [id number] #1.00CD:127 Normal [facility] CREATININEon 09-11-2022 Creatinine [Mass/Vol] 1.60 mg/dL Critically high 0.70-1.30 [facility] Comment on above: Performed By: #### C SHAQUILLE #### [facility] [address] [place] [address] Dr. Fortino Schroeedr EGFR-AF PALAUAN 52 mL/min/1.73m2 Critically low >=60 [facility] Comment on above: Performed By: #### C SHAQUILLE #### [facility] [address] [address] [address] Fortino Schroeder EGFR-NON AF PALAUAN 43 mL/min/1.73m2 Critically low >=60 [facility] Comment on above: Performed By: #### C SHAQUILLE #### [facility] [address] [place] [address] ABD/PELV W CONon [...] EVIE TROTTER Date: 2022-09-11 13:41 Normal [facility] Covid-19 PCR (CVDTBH)on 12-06 SARS-CoV-2 (COVID-19) RNA THANH+probe Ql (Unsp spec) Detected Critically abnormal NOT DETECTED [facility] Comment on above: Result Comment: This test is not yet approved or cleared by the [place] FDA. When there are no FDA-approved or cleared tests available, and other criteria are met, FDA can make tests available under an emergency access mechanism called an Emergency Use Authorization (EUA). The EUA for this test is supported by the Customer Experience Manager of Health and Human Service's (HHS's) declaration [...] longer be used). Performed By: #### C [facility] #### [facility] [address] [place] [address] Dr. Fortino Schroeder COVID Quick Testingon 2020 Result Negative [facility] Other Vital Signs Date Time Vital Sign Value Performing Clinician Facility 12-06-2024 10:40-0400 Body height 170.18 cm Lyn Rodriguez MD Work Phone: [facility] 12-06-2024 10:40-0400 Body mass index (BMI) [Ratio] 29.7 kg/m2 Lyn Rodriguez MD Work Phone: [facility] 12-06-2024 10:40-0400 Body temperature 98.7 [degF] Lyn Rodriguez MD Work Phone: [facility] 12-06-2024 10:40-0400 Body weight 86.23 kg Lyn Rodriguez MD Work Phone: [facility] 12-06-2024 10:40-0400 Diastolic blood pressure 82 mm[Hg] Lyn Rodriguez MD Work Phone: [facility] 12-06-2024 10:40-0400 Heart rate 76 /min Lyn Rodriguez MD Work Phone: [facility] 12-06-2024 10:40-0400 Respiratory rate 18 /min Lyn Rodriguez MD Work Phone: [facility] 12-06-2024 10:40-0400 SaO2% (BldA) [Mass fraction] 98 % Lyn Rodriguez MD Work Phone: [facility] 12-06-2024 10:40-0400 Systolic blood pressure 153 mm[Hg] Lyn Rodriguez MD Work Phone: [facility] 12-06-2022 09:45-0400 Body height 170.18 cm Puja Kenney Other [facility] Other 12-06-2022 09:45-0400 Body mass index (BMI) [Ratio] 29.66 kg/m2 Puja Kenney Other [facility] Other 12-06-2022 09:45-0400 Body temperature 98.8 [degF] Puja Kenney Other [facility] Other 12-06-2022 09:45-0400 Body weight 85.91 kg Puja Kenney Other [facility] Other 12-06-2022 09:45-0400 Respiratory rate 18 /min Puja Kenney Other [facility] Other 12-06-2022 09:45-0400 SaO2% (BldA) [Mass fraction] 98 % Puja Kenney Other [facility] Other 09-29-2022 15:10-0400 Blood Pressure Location Janet MALHOTRA [facility] [place] 09-29-2022 15:10-0400 Diastolic blood pressure 82 mm[Hg] Janet MALHOTRA [facility] [place] 09-29-2022 15:10-0400 Heart rate 72 /min Janet MALHOTRA [facility] [place] 09-29-2022 15:10-0400 Respiratory rate 16 /min Janet MALHOTRA [facility] [place] 09-29-2022 15:10-0400 Systolic blood pressure 122 mm[Hg] Janet MALHOTRA [facility] [place] 04-23-2021 10:00-0500 Body height 170.18 cm Nata Rossmond Other [facility] Other 04-23-2021 10:00-0500 Body mass index (BMI) [Ratio] 28.19 kg/m2 Nata Rossmond Other [facility] Other 04-23-2021 10:00-0500 Body temperature 97.8 [degF] Nata Rossmond Other [facility] Other 04-23-2021 10:00-0500 Body weight 81.65 kg Nata Echavarria Other [facility] Other 04-23-2021 10:00-0500 Respiratory rate 18 /min Nata Echavarria Other [facility] Other 04-23-2021 10:00-0500 SaO2% (BldA) [Mass fraction] 98 % Nata Echavarria Other [facility] Other Encounters Encounter Date Encounter Type Care Provider Facility Start: 12-06-2024 End: 12-06-2024 ambulatory Lyn Rodriguez MD Work Phone: [facility] Work Phone: Start: 12-06-2024 End: 12-06-2024 Patient encounter procedure Naz Cain PLASMA PROCESSING TECHNICIAN -[facility] Work Phone: Start: 12-06-2022 End: 12-06-2022 ambulatory Puja Kenney Other [facility] Other Start: 12-06-2022 Office outpatient vi sit 15 minutes Puja Kenney [facility] Start: 11-18-2022 End: 11-19-2022 ambulatory Janet R NILL Facility:[facility] Start: 11-18-2022 End: 11-18-2022 Patient encounter procedure Janet R NILL General [facility] Start: 11-04-2022 End: 11-05-2022 ambulatory Janet R NILL Facility:[facility] Start: 11-04-2022 End: 11-04-2022 Patient encounter procedure Janet R NILL [facility] [place] Start: 10-23-2022 End: 10-24-2022 ambulatory Janet R NILL Facility:[facility] Start: 10-14-2022 End: 10-15-2022 ambulatory JANET LEZAMAL Facility: Start: 10-06-2022 Encounter for preprocedural cardiovascular examination [facility] LYN RODRIGUEZ [facility] Start: 10-06-2022 Encounter for preprocedural laboratory examination DR LYN RODRIGUEZ . [facility] Start: 10-06-2022 Encounter for other preprocedural examination JANET MALHOTRA [facility] Start: 10-02-2022 End: 10-03-2022 Encounter for preprocedural cardiovascular examination DR LYN RODRIGUEZ . Facility: Start: 10-02-2022 End: 10-03-[address] LYN RODRIGUEZ . Facility: Start: 10-02-2022 End: 10-03-2022 Encounter for other preprocedural examination JANET MALHOTRA Facility: Start: 09-29-2022 End: 09-30-2022 ambulatory Janet R NILL Facility:[facility] Start: 09-29-2022 End: 09-29-2022 Patient encounter procedure Janet R NILL [facility] [place] Start: 09-16-2022 ambulatory Lyn Rodriguez Facility:[facility] Start: 09-11-2022 End: 09-12-[address] LNY RODRIGUEZ . Facility:[facility] Start: 12-24-2021 End: 12-24-[address] LYN RODRIGUEZ . Facility:[facility] Start: 04-23-2021 (URG) Urgent Care Visit [facility] Start: 04-23-2021 End: 04-23-2021 ambulatory Nata Echavarria Other [facility] Other Procedures Date Procedure Procedure Detail Performing Clinician Start: 10-14-2022 Repair of left ingui nal hernia Janet NILL Colonoscopy Janet NILL Repair of right ingu inal hernia Janet NILL Simple extraction of tooth M elinor NILL Immunizations Immunization Date Immunization Notes Care Provider Fa cility NEGATED: Highlighted row has not occurred!09-29-2022 influenza virus vaccine, unspecified formulation Janet NILL [facility] [place] NEGATED: Highlighted row has not occurred!09-29-2022 SARS-CoV-2 mRNA (tozinameran 5y-11y) vaccine Janet [employer] [facility] [place] Payers Date Payer Category Payer [facility] [id number] 1950 Unknown [id number] 2.16.84 [id number] 1950 Unknown [id number] 2.16.84 [id number] 1950 Unknown [id number] 2.16.84 [id number] 1950 Unknown [id number] 2.16.84 [id number] 1950 Unknown [id number] 2.16.84 [id number] 1950 Unknown [id number] 2.16.8 [id number] 1950 Unknown [id number] 2.16.8 [id number] 1950 Unknown [id number] 2.16.8 [id number] 1950 Unknown [id number] 2.16.8 [id number] 1950 Unknown [id number] 2.16.8 [id number] 1950 Unknown [id number] 2.16.8 [id number] Unknown Adrian BC/BS [id number] Social History Date Type Detail Facility Unknown if ever smoked [facility] Other Start: 09-29-2022 Tobacco smoking status Never s moked tobacco (finding) [facility] Tobacco smoking status Never Gener [facility] [place] Sex Assigned At Male [facility] Tobacco smoking stat [facility] Unknown if ever smoked [facility] Work Phone: Sex Male (finding) [facility] Start: 1950 Sex Assigned At Male [facility] Functional Status Date Assessment Result Facility 09-29-2022 Functional Status N/A [facility] Clinical Notes 09-29-2022 to 12-06-2022 Note Date [...] if febrile or new/worsening s/s despite tx. [facility] Other 05-31-2023 Hospital Discharge instructions Follow Up Care 11/04/2022 13:50:29 With:MARYA HAMM, TERESA Perez Address: [place] [address]- When: only if needed General Surgery [employer] 05-10-2023 NoteOPERATIVE NOTE OPERATION DATE: 10/14/2022 PREOPERATIVE [...] in good condition. CC: Lyn Rodriguez M.D.[facility] [id number] NoteChief Complaint consultation for left inguinal hernia [facility] Staff 72 year old male presents on [...] - Not Given Patient Refuses SARS-CoV-2 mRNA (tozanen 5y-11y) vac - Not Given [facility] Hospital[facility] on above:Result Comment: Electronically Signed By: Janet MALHOTRA MD\.br\Date and Time Signed: 09/29/22 15:45 EDTEvaluation + Plan note No data available for this section [facility] [place] Evaluation + Plan note Future Appointments Appointment Date:11/18/2022 04:00:00 PM Scheduled Provider:Janet MALHOTRA MD Location:[facility] Appointment Type: Post Op 15 [facility] [place] Evaluation noteNortKalpesh [employer] Other Evaluation noteNo assessment information available [facility] [employer] Work Phone: History general Narrative - ReportedNortGeising[facility] Medical [facility] [employer] Other [employer] general Narrative - Reported* Type Description Date Medical History HTN (hypertension) Medical History Insomnia Surgical History hernia repair [facility] [employer] Other Hospital Discharge instructions No data available for this section [facility] [place] Progress note No data available for this section [facility] [place] Reason for referral (narrative)No reason for referral information availableGrand [facility] Work Phone: Summary Purpose Family History Relationship Condition Age at Onset Recorded Date/T domingo father Hypertension Unknown Unknown Heart disease Unknown mother Unknown Hypertension Unknown sister Hypertension Unknown Diabetes mellitus Unknown Advance Directives Advance Directive Response Recorded Date/ Time Advance Directives No December 06 10:32am Chief Complaint and Reason for Visit Chief Complaint Admit Date Cough,congestion December 06, 2024 10:34 am Additional Source Comments Patient Care team informatio n (unrecognized section and content) Team Status: Active Member Role Status Danilo Rodriguez MD Primary Care Provider Active Team Status: Inactive Member Role Status Danilo Rodriguez MD Primary Care Provider Active Start: December 06, 2024 End: December 06, 2024 CHIQUITA Arrington RN POWER EQUIPMENT TECHNOLOGY INSTRUCTOR-C Attending Provider Active Start: December 06 End: December 06, 2024 (unrecognized sect ion and content) No Status Records FoundNo Status Records Found INFORMATION SOURCE (unrecogn ized section and content) DATE CREATED AUTHOR 10/20/2022 [facility] DATE CREATED AUTHOR AUTHOR'S ORGANIZ ATION 11/19/[address] [facility] REASON FOR VISIT (unrecogniz ed section and content) COUGH, CONGESTION, HEADACHE Goals (unrecognized section and content) Goals may be documented in a n alternate section FOR RECORDS PERTAINING TO PATIENTS WHO ARE [...] BE BASED ON THE PRIMARY CLINICAL RECORDS. [employer] provides no warranty or guarantee of the accuracy or completeness of information in this document.
--- NOTE | 2024-12-07 08:39 | XR_ITS ---
The [address] [address] Patient Name: TENZIN VILLANUEVA MRN: [id number] date: 1950 Sex: M Assigned Patient Location: LAB Current Patient Location: LAB Accession/Order Number: [id number] Exam Date: 12/07/2024 08:58 Report Date: 12/07/2024 09:00 At the request of: LYN MARTINEZ MD Procedure: XR chest 2V PA AND LATERAL CHEST: CLINICAL HISTORY: Chronic cough. Benign Essential Hypertension, Type 2 Diabetes COMPARISON: 09/05/2024 There is shallow inspiration and minor basilar scarring or atelectasis, greater on the left. There is no developing consolidation, effusion or pneumothorax. The cardiac, hilar and mediastinal silhouettes are within normal limits. There is no vascular congestion. The visualized bony thorax is intact. Endplate spurring is seen at the spine. XR/XR chest 2V IMPRESSION: NO ACUTE CARDIOPULMONARY ABNORMALITY. Impression dictated by: Claudette Carolina M.D. 12/07/2024 9:00 AM Dictation Location: [place] [address] Electronically authenticated by: [id number] Y Date: 12/07/2024 09:00
[2024-12-07 08:58] LABS: Hematocrit 42.4 % (42.0-54.0); Hemoglobin 14.1 g/dL (14.0-18.0); Immature Granulocytes Abs Auto 0.02 10^3/uL (0.00-0.03); Immature Granulocytes Pct Auto 0.4 % (0.0-0.5); Lymphocytes Absolute Auto 1.6 10^3/uL (1.2-3.8); Mean Corpuscular HGB Conc 33.3 g/dL (29.9-35.2); Mean Corpuscular Hemoglobin 31.1 pg (25.9-34.0); Mean Corpuscular Volume 93.4 fL (80.0-94.0); Platelet Count 204 10^3/uL (150-450); Red Blood Count 4.54 10^6/uL (4.70-6.10); White Blood Count 5.5 10^3/uL (4.0-11.0)
[2024-12-07 09:26] LABS: Alanine Aminotransferase 26 U/L (16-63); Albumin Globulin Ratio 1.1; Albumin Level 3.4 g/dL (3.4-5.0); Alkaline Phosphatase 58 U/L (46-116); Anion Gap 17.4; Aspartate Amino Transferase 24 U/L (15-37); Blood Urea Nitrogen 21.0 mg/dL (7.0-18.0); Calcium 8.9 mg/dL (8.5-10.1); Carbon Dioxide 24.0 mmol/L (21.0-32.0); Chloride 102 mmol/L (98-107); Cholesterol 130 mg/dL (<=200); Estimated GFR (African America 52 (>=60 mL/min/1.73m^2); Estimated GFR (Non-African Ame 43 (>=60 mL/min/1.73m^2); Free T3 2.50 pg/mL (2.18-3.98); Globulin 3.0 g/dL; Glucose 91 mg/dL (74-106); HDL Cholesterol 44 mg/dL (40-60); NT Pro B Type Natriuretic Pept 338.0 pg/mL (<=900.0); Potassium 4.4 mmol/L (3.5-5.1); Sodium 139 mmol/L (136-145); Thyroid Stimulating Hormone 2.122 uIU/mL (0.358-3.740); Total Protein 6.4 g/dL (6.4-8.2); Triglycerides 64 mg/dL (<=150); VLDL CHOLESTEROL 12.8 mg/dL
== END 2024-12-07 08:15 | disposition home or self-care (01) ==
PROVIDERS: PCP Family Medicine; Visit Provider Family Medicine
DX: E11.65 Type 2 diabetes mellitus with hyperglycemia (principal); I10 Essential (primary) hypertension; Z12.5 Encounter for screening for malignant neoplasm of prostate
CPT/HCPCS: 36415; 71046; 80053; 80061; 83036; 83880; 84436; 84443; 84481; 84484; 85025; G0103

== ENCOUNTER 2024-12-11 15:06 | Outpatient (OUT) | payer BC, SELFPAY ==
[2024-12-12 04:08] LABS: PSA, Free 2.35 ng/mL
== END 2024-12-11 15:07 | disposition home or self-care (01) ==
LOC: LAB 15:07
PROVIDERS: PCP Family Medicine; Visit Provider Family Medicine
DX: R97.20 Elevated prostate specific antigen [PSA] (principal)
CPT/HCPCS: 36415; 84153; 84154